=== PATIENT | female | born 1940 | race Caucasian/White ===

== ENCOUNTER 2017-01-22 01:04 | Inpatient (IN) | payer MEDICARE, MEDICAID ==
[2017-01-22] VITALS (11 sets, daily range): BP systolic 94–128; BP diastolic 64–80; PULSE 67–79; RESP 16–18; O2SAT 94–97
[~2017-01-22] VITALS: Ht 152.4 cm; Wt 59.2 kg
[~2017-01-22 01:04] MED LIST: AMOX-366 PO; ASPI-973 PO; HYDR2TAB27 PO; ISOS30TA4 PO; LEVO25TA5 PO; LEVO330T PO; LOSA25TA21 PO; Metoprolol Tartrate PO; NITR0.4T SL; RANI150C4 PO
--- NOTE | 2017-01-22 01:17 | ED.REPORT ---
HPI-Abd Pain F 40 and Over Date of Service Jan 22, 2017 ED Provider: Yair Isabel MD A 76 year old female with a history of diverticulitis, chronic pancreatitis, previous GI bleeds, GERD and previous DC presents to the ED with diarrhea that began 3 days ago. Her current symptoms feel similar to her previous episode of diverticulitis. Associated symptoms include nausea, heart palpitations and abdominal cramping. The pain in her abdomen is exacerbated by cough. She reports mild blood present after wiping but denies large amount of blood in her stool. Patient was last seen in the ED for similar symptoms on 05/19/[address] revealed sigmoid diverticulitis. Nursing Notes Stated Complaint: ABDOMINAL PAIN,FLUTTERING HEART RATE Chief Complaint: Female Abdominal Pain Nursing Notes Reviewed: Yes Allergies: Coded Allergies: morphine (Verified Allergy, Severe, nausea with emesis, 12/20/14) oxycodone (Verified Allergy, Severe, 12/20/14) tetracycline (Verified Allergy, Severe, 12/20/14) hydromorphone (Verified Adverse Reaction, Intermediate, Nausea,Vomiting, ) ondansetron (Verified Adverse Reaction, Intermediate, makes her more sick and vomits, 05/19/16) Scheduled ([Metoprolol Tartrate]) 25 MG TABLET 12.5 MG PO BID Aspirin (Aspirin) 81 Mg Tablet 81 MG PO DAILY Isosorbide MN ER (Isosorbide MN ER) 30 Mg Tab.er.24h 30 MG PO QAM Levothyroxine (Levothyroxine) 25 Mcg Tablet 25 MCG PO DAILY Losartan Potassium (Losartan Potassium) 25 Mg Tablet 12.5 MG PO DAILY Ranitidine (Ranitidine) 300 Mg Capsule 300 MG PO DAILY Scheduled PRN Nitroglycerin SL (Nitrostat) 0.4 Mg Tab.subl 0.4 MG SL Q5MIN PRN PRN For Chest Pain Saccharomyces Boulardii (Florastor) 250 Mg Capsule 250 MG PO PRN For Diarrhea or Loose Stool General Time Seen by MD: 01:16 Chief Complaint Diarrhea moderate Hx Obtained From: Patient Arrived By: Walk-in Sudden in Onset?: No Onset Occurred: 3 days ago Symptom Duration: Since onset Location: : Diffuse Quality: Cramping, Painful Radiation: : Does not radiate Severity: Current: Moderate Severity: Maximum: Moderate Associated with: Reports: Diarrhea, Nausea, Denies: Hematochezia Pertinent Negative: Pt denies other symptoms Exacerbated by: Cough Recent Healthcare: No recent doctor visit, No recent hospitalization Risk Factors )( AAA Risk Stratification Risk factors reviewed Past Medical History Past Medical History Notes: (2013) Sigmoidoscopy - showed diverticulosis and severe colon tortuosity and a rectocele Past Medical History 1. Recent anterior ST-elevation DC on September 21, 2013. 2. Subsequent pericarditis, suspected associated to acute DC and CPR trauma, status post treatment with prednisone. 3. Recent suspected upper GI bleed with endoscopy. Recently not showing any active source of bleeding. 4. Recent severe anemia, suspected secondary to upper GI bleed, now appears resolved. 5. Hiatal hernia. 6. GERD. 7. Questionable cervical cancer, status post conization. Past Surgical History Conical biopsy Smoking History Never Smoker Social History Alcohol Use: Denies alcohol use Drug Use: Denies drug use Other Social History: Good social support, Local resident Ambulatory Status Independent Review of Systems Cardiovascular: Reports: Palpitations GI: Reports: Abdominal pain, Diarrhea, Nausea, Denies: Bloody/tarry stool, Hematochezia Complete sys rev & neg: except as marked. Physical Exam Vital Signs Vital Signs (First) Date Time Temp Pulse Resp B/P Pulse Ox O2 Delivery O2 Flow Rate FiO2 01/22/17 01:08 36.7 74 18 118/80 96 Room Air Initial VS: Reviewed Head / Eyes: Atraumatic, Normocephalic, PERRL Neck: Supple, Non-tender, Full range of motion Extremities: Vascular intact, Neuro intact, No swelling, No tenderness Skin: Warm, Dry, No cyanosis Neurologic: Alert, Oriented, Nonfocal Psychiatric: Mood/affect normal, Behavior normal, Normal thought content General/Constitutional: Awake, Alert, No acute distress Respiratory / Chest: Atraumatic, Breath sounds NL, Breath sounds = bilat, No respiratory distress Cardiovascular: Heart rate NL, Regular rhythm, Heart sounds NL Abdomen: Atraumatic, Soft Tenderness/Guarding/Rebound: Positive: Tender LLQ... (Mild) Back: Atraumatic, Inspection NL Interpretation & Diagnostics Lab Results Interpretation Result Diagram: 01/22/17 0215 01/22/17 0215 Test 01/22/17 02:15 White Blood Count 9.2th/mm3 (3.8-10.1) Red Blood Count 4.37mil/mm3 (3.90-5.20) Hemoglobin 13.3g/dL (12.0-15.6) Hematocrit 38.7% (35.0-46.0) Mean Corpuscular Volume 88.6fL (81-100) Mean Corpuscular Hemoglobin 30.4pg (27.0-35.0) Mean Corpuscular Hemoglobin Concent 34.4% (32.0-37.0) Red Cell Distribution Width 12.3% (12.3-15.4) Platelet Count 171bil/L (150-400) Neutrophils (%) (Auto) 73.1% (40-74) Lymphocytes (%) (Auto) 18.6% (14-46) Monocytes (%) (Auto) 7.7% (4-12) Eosinophils (%) (Auto) 0.3% (0-5) Basophils (%) (Auto) 0.2% (0-3) Prothrombin Time 11.1sec (8.1-12.5) Prothromb Time International Ratio 1.04ratio Urine Color Dark yellow (YELLOW) Urine Appearance Clear (CLEAR,HAZY) Urine pH 6.5 (5.0-8.0) Urine Specific [place] 1.020 (1.003-1.035) Urine Protein Tracemg/dL (NEG,TRACE) Urine Glucose (UA) Negativemg/dL (NEGATIVE) Urine Ketones 40mg/dL (NEGATIVE) Urine Occult Blood Trace (NEGATIVE) Urine Nitrite Negative (NEGATIVE) Urine Bilirubin Negative (NEGATIVE) Urine Urobilinogen 2.0mg/dL (NORMAL) Urine Leukocyte Esterase Small (NEGATIVE) Urine RBC 0-2/hpf (0-2) Urine WBC 6-10/hpf (0-5) Urine Epithelial Cells Few/hpf (NONE-MOD) Urine Crystals Oxalic acid crystals (NONE Urine Bacteria Moderate/hpf (NONE-FEW) Urine Hyaline Casts None/lpf (NONE) Urine Granular Casts None seen (NONE SEEN) Urine Waxy Casts None seen (NONE SEEN) Urine Red Blood Cell Casts None seen (NONE SEEN) Urine White Blood Cell Casts None seen (NONE SEEN) Urine Mucus Present (None Seen) Urine Trichomonas None seen (NONE SEEN) Urine Yeast None (NONE SEEN) Urinalysis Comment None Urine Culture Reflexed Indicated Sodium Level 129mEq/L (134-144) Potassium Level 4.1mEq/L (3.5-5.2) Chloride Level 92mEq/L (97-108) Carbon Dioxide Level 19mmol/L (18-29) Blood Urea Nitrogen 10mg/dL (8-27) Creatinine 0.38mg/dL (0.57-1.00) Estimat Glomerular Filtration Rate 235mL/min (>59) Glucose Level 112mg/dL (60-99) Lactic Acid Level 0.9mmol/L (0.4-2.0) Calcium Level 9.0mg/dL (8.5-10.1) Magnesium Level 1.7mg/dL (1.6-2.6) Total Bilirubin 1.9mg/dL (0.0-1.2) Aspartate Amino Transf (AST/SGOT) 14U/L (0-50) Alanine Aminotransferase (ALT/SGPT) 12U/L (0-32) Alkaline Phosphatase 64U/L (25-165) Total Protein 7.1g/dL (6.4-8.4) Albumin 3.6g/dL (3.4-5.0) Lipase 15U/L (13-60) CT Abd / Pelvis Interpretation IMPRESSION: Probable enteritis of the pelvic small bowel loops with moderate fluid and dilatation of the small bowel and proximal colon, inseparable from an enlarged, heterogeneous uterus. Uterine neoplasm is not excluded. Probable complications from sigmoid diverticulitis, mild residual remains. No abscess or perforation. Study type: Abdominal CT IV contrast, Abdom CT oral contrast Interpretation / Wet Read by: Interpret - Radiologist ([facility]) Re-Eval/Medical Decision Med Decision/Clinical Course 76-year-old female with prior diverticulitis presents with a fairly benign appearance and a normal white count, but a CT that shows a fairly extensive phlegmon in her pelvis associate with diverticulitis. Possibility of uterine cancer also to be considered. Begun with meropenem and admitted for further evaluation and management. Re-Evaluation/Progress #1: Time of Eval: 03:49 Re-Evaluation/Progress Note: Patient is informed of her current lab results and the plan to obtain a CT scan. Re-Evaluation/Progress #2: Time of Eval: 04:44 Patient Status: Condition improved Re-Evaluation/Progress Note: Patient is informed of her concerning CT results and the plan to admit for IV antibiotics. All questions about her diagnosis are addressed. She understands and agrees with the plan to admit. Consultation : Referral / Consult Name: Brinda Burton DO Consulted With: Hospitalist Call Returned at: 04:53 Studio Data Analyst: Will see patient, Agrees with eval, Agrees with plan, Accepts admit Note: Discussed patient conditon. Dr. Burton agrees to admit the patient. Counseled Regarding: Diagnosis, Lab results, Need for admission Discharge & Departure Primary Impression: Sigmoid diverticulitis Additional Impressions: Regional enteritis of small bowel Digestive disease complication type: other complication Qualified Code: K50.018 - Crohn's disease of small intestine with other complication Phlegmon Disposition: ADMITTED TO HOSPITAL Discharge Condition All VS Reviewed: Yes Condition: Improved Referrals: Mora Oneill DO (PCP) Scribe Attestation Portions of this note were transcribed by Garrison Lara. I, Dr. Isabel, personally performed the history, physical exam and medical decision-making; I reviewed and confirmed the accuracy of the information in the transcribed note. Signed by: Garrison Lara, 01/22/17. copies to: Mora Oneill Christopher W MD Jan 22, 2017 01:17 GARRISON LARA Jan 22, 2017 01:24
[2017-01-22] MEDS ORDERED: 0.9% Sodium Chloride 1,000 ML IV ONE (01:21)
[2017-01-22] MEDS ORDERED: Ketorolac 15 mg/mL Inj IVPUSH ONE (01:25)
[2017-01-22 02:27] LABS: BASOPHILS % (AUTO) 0.2 % (0-3); EOSINOPHILS % (AUTO) 0.3 % (0-5); MONOCYTES % (AUTO) 7.7 % (4-12); Mean Corpuscular Hemoglobin 30.4 pg (27.0-35.0); Mean Corpuscular Volume 88.6 fL (81-100); NEUTROPHILS % (AUTO) 73.1 % (40-74); Platelet Count 171 bil/L (150-400)
[2017-01-22 02:34] LABS: APPEARANCE,URINE CLEAR (CLEAR,HAZY); COLOR,URINE DARK YELLOW (YELLOW); OCCULT BLOOD,URINE TRACE (NEGATIVE); PH,URINE 6.5 (5.0-8.0)
[2017-01-22 02:44] LABS: INR 1.04 ratio
[2017-01-22 03:40] LABS: Magnesium 1.7 mg/dL (1.6-2.6)
[2017-01-22] MEDS ORDERED: Promethazine Inj 12.5 MG in 0.9% Sodium Chloride-Pha MIX 100 ML IV ONE (03:50)
[2017-01-22] MEDS ORDERED: Meropenem Inj 1,000 MG in 0.9% Sodium Chloride 50 ML IV ONE (04:50)
[2017-01-22] MEDS ORDERED: Alum-Mag Hydrox-Simeth 30 mL Suspension PO PRN (05:25)
[2017-01-22] MEDS ORDERED: Promethazine 25 mg/mL Inj IM PRN (05:25)
[2017-01-22] MEDS: Lactated Ringer's 1,000 ML IV SCH ×2 (06:17→15:23)
[2017-01-22] MEDS ORDERED: RANI300C PO (06:45)
[2017-01-22] MEDS ORDERED: SACC250C PO (06:45)
--- NOTE | 2017-01-22 06:47 | NUR ---
Admit to room 3013 @ 05:00 with Acute Diverticulitis. Pain 5/10 but does not want anymore pain meds. VSS 95% on RA. Oriented to room and POC on whiteboard.
--- NOTE | 2017-01-22 06:55 | NUR ---
Med Rec completed with patient list/interview.
--- NOTE | 2017-01-22 08:04 | DRSVH ---
PROCEDURE: CT ABDOMEN AND PELVIS WITH CONTRAST ([id number]) INDICATIONS: LLQ PAIN, PRIOR DIVERTICULITIS TECHNIQUE: After the administration of oral and intravenous contrast, 5 mm thick sections acquired from the diap hragms to the symphysis. 5 mm thick coronal and sagittal reformats were performed. For radiation do se reduction, the following was used: automated exposure control, adjustment of mA and/or kV accordi ng to patient size. COMPARISON: [facility], CT, CT ABD PELVIS W CON, 05/19/2016, 14:12. FINDINGS: Image quality: Excellent. ABDOMEN: Lung basesa large hiatal hernia containing the majority of the stomach redemonstrated. Mild associat ed atelectasis is demonstrated in the lung bases. Heart size is normal. Solid organs: Liver and spleen are normal in size and enhancement. There are 2 hepatic cysts noted. Gallbladder is surgically absent. There is mild biliary ductal dilatation likely related to prior c holecystectomy. Pancreas enhances normally. No adrenal nodules. Kidneys demonstrate no hydronephro sis. Peritoneum and bowel: There is mild fluid and gaseous distention of multiple small bowel loops measu ring up to approximately 3 cm in diameter with air-fluid levels. These appear secondary to a functio nal obstruction due to segmental wall thickening and enhancement of multiple small bowel loops in the pelvis compatible with a nonspecific enteritis. There is no single transition point, with a few int ervening segments of mild fluid distention between the nondistended segments. The colon is relativel y nondistended, with fluid and gas contents noted. There is colonic diverticulosis. There is mild s egmental wall thickening within the sigmoid colon distally consistent with a nonspecific colitis, pos sibly reflecting sequelae of diverticulitis. No diverticular abscess or macroscopic free air. There is minimal free fluid in the pelvis. Nodes and vessels: No retroperitoneal or mesenteric adenopathy. Aorta and inferior vena cava are no rmal in caliber. There is splenic varices noted. 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 Miscellaneous: No ventral hernias. PELVIS: Genitourinary: The uterus is enlarged with thickening and heterogeneous enhancement of the myometriu m. Findings are similar to the prior study. Bladder wall thickness is normal. Miscellaneous: There is a small left inguinal hernia containing a small amount of fluid in No inguin al adenopathy. Bones: No suspicious bony lesions. No vertebral body compression fractures. IMPRESSION: 1. Multiple segments of small bowel wall thickening and enhancement in the pelvis consistent with a nonspecific infectious or inflammatory enteritis. There is associated mild dilatation of multiple sm all bowel loops consistent with a functional obstruction without a single transition point. 2. Segmental colitis in the sigmoid colon may be related to sequelae of diverticulitis. No divertic ular abscess or macroscopic free air. 3. Enlarged heterogeneously enhancing uterus. Findings statistically likely represent multiple uter ine fibroids but a neoplasm cannot be excluded. However, findings appear similar to the prior CT of 05/19/16. 4. Large hiatal hernia redemonstrated. Dictated by: Genaro Trejo M.D. on 01/22/2017 at 7:48 Approved by: Genaro Trejo M.D. on 01/22/2017 at 8:03
[2017-01-22] MEDS ORDERED: Meropenem Inj 1,000 MG in 0.9% Sodium Chloride 100 ML IV SCH (08:30)
--- NOTE | 2017-01-22 08:56 | PCM.HPMED ---
Subjective Date of Service Jan 22, 2017 Primary Provider: Admitting Physician: Brinda Burton DO Primary Care Physician: Mora Oneill DO Attending Physician: Brinda Burton DO Admit Status: From the Emergency Department, Full Admit, Admit to Green Team Chief Complaint: Abdominal pain History of Present Illness: This is a 76-year-old female who has a history of diverticulitis, chronic pancreatitis, history of NJ in the past. She notes she was in her usual state of health however approximately 3-4 days ago started having left lower quadrant pain which then became more diffuse. She denies any fevers or chills. She also notes that she developed diarrhea several times per day which was Brown in color. She had no nausea or vomiting. I did not get this history nor go back to assess the patient but according to the ER MDs note she had some palpitations no chest pain. She tells me she has never been able to have a successful colonoscopy given tortuous colon. She notes that this was attempted here at [facility]. Her evaluation in the emergency room includes a normal white blood cell count. CT of abdomen and pelvis with oral and IV contrast reveals multiple segments of small bowel wall thickening and enhancement in the pelvis consistent with nonspecific infectious or inflammatory enteritis. Also appears to be segmental colitis in the sigmoid colon which may be related to sequela of diverticulitis. Also noted is enlarged heterogeneous enhancing uterus. Vision denies any abnormal findings previously of her uterus.. She does note she has a history of a cystocele and rectocele. Was a large hiatal hernia present which she is aware of. Is also small left inguinal hernia noted containing a small amount of fluid. Review of Systems: All other review systems are reviewed and are negative except for as in history of present illness. Allergies Coded Allergies: morphine (Verified Allergy, Severe, nausea with emesis, 12/20/14) oxycodone (Verified Allergy, Severe, 12/20/14) tetracycline (Verified Allergy, Severe, 12/20/14) hydromorphone (Verified Adverse Reaction, Intermediate, Nausea,Vomiting, ) ondansetron (Verified Adverse Reaction, Intermediate, makes her more sick and vomits, 05/19/16) Home Medications Scheduled ([Metoprolol Tartrate]) 25 MG TABLET 12.5 MG PO BID Aspirin (Aspirin) 81 Mg Tablet 81 MG PO DAILY Isosorbide MN ER (Isosorbide MN ER) 30 Mg Tab.er.24h 30 MG PO QAM Levothyroxine (Levothyroxine) 25 Mcg Tablet 25 MCG PO DAILY Losartan Potassium (Losartan Potassium) 25 Mg Tablet 12.5 MG PO DAILY Ranitidine (Ranitidine) 300 Mg Capsule 300 MG PO DAILY Scheduled PRN Nitroglycerin SL (Nitrostat) 0.4 Mg Tab.subl 0.4 MG SL Q5MIN PRN PRN For Chest Pain Saccharomyces Boulardii (Florastor) 250 Mg Capsule 250 MG PO PRN For Diarrhea or Loose Stool PMH Past Medical History Notes: (2013) Sigmoidoscopy - showed diverticulosis and severe colon tortuosity and a rectocele Past Medical History 1. Recent anterior ST-elevation NJ on September 21, 2013. 2. Subsequent pericarditis, suspected associated to acute NJ and CPR trauma, status post treatment with prednisone. 3. Recent suspected upper GI bleed with endoscopy. Recently not showing any active source of bleeding. 4. Recent severe anemia, suspected secondary to upper GI bleed, now appears resolved. 5. Hiatal hernia. 6. GERD. 7. Questionable cervical cancer, status post conization. Past Surgical History Conical biopsy Family History No Family medical history of gastroenterology issues Social History Hx Alcohol Use: No Hx Substance Use: No Smoking Status: Never Smoker Living Arrangement: with Family Exam Vital Signs Vital Sign - Last Date Time Temp Pulse Resp B/P Pulse Ox O2 Delivery O2 Flow Rate FiO2 01/22/17 07:35 78 01/22/17 05:47 36.9 18 128/78 96 Room Air Intake and Output 01/21/17 01/21/17 01/22/17 Cumulative From/Thru 15:00 23:00 07:00 01/22/17 01:08 - 01/22/17 06:34 Intake Total 1000 ml 1000 ml Balance 1000 ml 1000 ml Intake IV Total 1000 ml 1000 ml Exam Constitutional: Elderly female in mild pain distress Head: Normocephalic atraumatic Eyes: PERRLA DC EOMI Mouth: No lesions Neck: No adenopathy Chest: Clear to auscultation Cor: Regular rate and rhythm S1-S2 without murmur Abdomen: Soft bowel sounds hypoactive mildly distended, mild diffuse tenderness but worse in the left lower quadrant. No rebound no guarding. Extremities: No pedal edema Skin: No rashes Psych: Mood and affect are appropriate Neuro: Alert and oriented 3, motor strength is intact bilaterally Lab and Diagnostics Labs Laboratory Tests 72 Hours Test 01/22/17 02:15 White Blood Count 9.2th/mm3 (3.8-10.1) Red Blood Count 4.37mil/mm3 (3.90-5.20) Hemoglobin 13.3g/dL (12.0-15.6) Hematocrit 38.7% (35.0-46.0) Mean Corpuscular Volume 88.6fL (81-100) Mean Corpuscular Hemoglobin 30.4pg (27.0-35.0) Mean Corpuscular Hemoglobin Concent 34.4% (32.0-37.0) Red Cell Distribution Width 12.3% (12.3-15.4) Platelet Count 171bil/L (150-400) Neutrophils (%) (Auto) 73.1% (40-74) Lymphocytes (%) (Auto) 18.6% (14-46) Monocytes (%) (Auto) 7.7% (4-12) Eosinophils (%) (Auto) 0.3% (0-5) Basophils (%) (Auto) 0.2% (0-3) Prothrombin Time 11.1sec (8.1-12.5) Prothromb Time International Ratio 1.04ratio Urine Color Dark yellow (YELLOW) Urine Appearance Clear (CLEAR,HAZY) Urine pH 6.5 (5.0-8.0) Urine Specific [place] 1.020 (1.003-1.035) Urine Protein Tracemg/dL (NEG,TRACE) Urine Glucose (UA) Negativemg/dL (NEGATIVE) Urine Ketones 40mg/dL (NEGATIVE) Urine Occult Blood Trace (NEGATIVE) Urine Nitrite Negative (NEGATIVE) Urine Bilirubin Negative (NEGATIVE) Urine Urobilinogen 2.0mg/dL (NORMAL) Urine Leukocyte Esterase Small (NEGATIVE) Urine RBC 0-2/hpf (0-2) Urine WBC 6-10/hpf (0-5) Urine Epithelial Cells Few/hpf (NONE-MOD) Urine Crystals Oxalic acid crystals (NONE Urine Bacteria Moderate/hpf (NONE-FEW) Urine Hyaline Casts None/lpf (NONE) Urine Granular Casts None seen (NONE SEEN) Urine Waxy Casts None seen (NONE SEEN) Urine Red Blood Cell Casts None seen (NONE SEEN) Urine White Blood Cell Casts None seen (NONE SEEN) Urine Mucus Present (None Seen) Urine Trichomonas None seen (NONE SEEN) Urine Yeast None (NONE SEEN) Urinalysis Comment None Urine Culture Reflexed Indicated Sodium Level 129mEq/L (134-144) Potassium Level 4.1mEq/L (3.5-5.2) Chloride Level 92mEq/L (97-108) Carbon Dioxide Level 19mmol/L (18-29) Blood Urea Nitrogen 10mg/dL (8-27) Creatinine 0.38mg/dL (0.57-1.00) Estimat Glomerular Filtration Rate 235mL/min (>59) Glucose Level 112mg/dL (60-99) Lactic Acid Level 0.9mmol/L (0.4-2.0) Calcium Level 9.0mg/dL (8.5-10.1) Magnesium Level 1.7mg/dL (1.6-2.6) Total Bilirubin 1.9mg/dL (0.0-1.2) Aspartate Amino Transf (AST/SGOT) 14U/L (0-50) Alanine Aminotransferase (ALT/SGPT) 12U/L (0-32) Alkaline Phosphatase 64U/L (25-165) Total Protein 7.1g/dL (6.4-8.4) Albumin 3.6g/dL (3.4-5.0) Lipase 15U/L (13-60) Result Diagram: 01/22/1721401/22/17214 X-Rays, CTs and MRIs PROCEDURE: CT ABDOMEN AND PELVIS WITH CONTRAST ([id number]) INDICATIONS: LLQ PAIN, PRIOR DIVERTICULITIS TECHNIQUE: After the administration of oral and intravenous contrast, 5 mm thick sections acquired from the diaphragms to the symphysis. 5 mm thick coronal and sagittal reformats were performed. For radiation dose reduction, the following was used : automated exposure control, adjustment of mA and/or kV according to patient size. COMPARISON: [facility], CT, CT ABD PELVIS W CON, 05/19/2016, 14:12. FINDINGS: Image quality: Excellent. ABDOMEN: Lung basesa large hiatal hernia containing the majority of the stomach redemonstrated. Mild associated atelectasis is demonstrated in the lung bases. Heart size is normal. Solid organs: Liver and spleen are normal in size and enhancement. There are 2 hepatic cysts noted. Gallbladder is surgically absent. There is mild biliary ductal dilatation likely related to prior cholecystectomy. Pancreas enhances normally. No adrenal nodules. Kidneys demonstrate no hydronephrosis. Peritoneum and bowel: There is mild fluid and gaseous distention of multiple small bowel loops measuring up to approximately 3 cm in diameter with air-fluid levels. These appear secondary to a functional obstruction due to segmental wall thickening and enhancement of multiple small bowel loops in the pelvis compatible with a nonspecific enteritis. There is no single transition point, with a few intervening segments of mild fluid distention between the nondistended segments. The colon is relatively nondistended, with fluid and gas contents noted. There is colonic diverticulosis. There is mild segmental wall thickening within the sigmoid colon distally consistent with a nonspecific colitis, possibly reflecting sequelae of diverticulitis. No diverticular abscess or macroscopic free air. There is minimal free fluid in the pelvis. Nodes and vessels: No retroperitoneal or mesenteric adenopathy. Aorta and inferior vena cava are normal in caliber. There is splenic varices noted. 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 Miscellaneous: No ventral hernias. PELVIS: Genitourinary: The uterus is enlarged with thickening and heterogeneous enhancement of the myometrium. Findings are similar to the prior study. Bladder wall thickness is normal. Miscellaneous: There is a small left inguinal hernia containing a small amount of fluid in No inguinal adenopathy. Bones: No suspicious bony lesions. No vertebral body compression fractures. IMPRESSION: 1. Multiple segments of small bowel wall thickening and enhancement in the pelvis consistent with a nonspecific infectious or inflammatory enteritis. There is associated mild dilatation of multiple small bowel loops consistent with a functional obstruction without a single transition point. 2. Segmental colitis in the sigmoid colon may be related to sequelae of diverticulitis. No diverticular abscess or macroscopic free air. 3. Enlarged heterogeneously enhancing uterus. Findings statistically likely represent multiple uterine fibroids but a neoplasm cannot be excluded. However , findings appear similar to the prior CT of 05/19/16. 4. Large hiatal hernia redemonstrated. Dictated by: Genaro Trejo M.D. on 01/22/2017 at 7:48 Approved by: Genaro Trejo M.D. on 01/22/2017 at 8:03 12-lead ECG Pending Assessment & Plan # Acute regional enteritis, sigmoid colitis and acute diverticulitis, present on admission -We will go ahead and treat with IV Zosyn -Check stool PCR -Clear liquid diet -IV fluids and pain medications as needed -Monitor white blood cell count -Surrounding inflammation could be sequela of diverticulitis #Hyponatremia, acute, present on admission -Most likely related to fluid loss with diarrhea -We will go ahead and replete with IV fluids # Heart palpitations, acute, present on admission -Placed on telemetry -Check 12-lead EKG -Monitor electrolytes # Abnormal uterus on CT, present on admission -Check pelvic ultrasound to further elucidate #History of NJ with coronary artery disease, present on admission -Continue with ASA daily -We will hold her losartan and monitor blood pressures -We will also hold her isosorbide to try to avoid possible hypotension at this point in time # Hypothyroidism, chronic, present on admission -Continue with levothyroxine therapy -Check TSH if not already done # Large hiatal hernia with GERD, chronic, present on admission -Continue with H2 lyn #DVT prophylaxis -Placed on subcutaneous prophylactic heparin #CODE STATUS -Full code Pain Evaluation: Adequate Pain Control GI Prophylaxis: H2 lyn VTE Prophylaxis: Sub-Q Heparin (Unfractionated), SCDs Resuscitation Status: CPR: Attempt Resuscitation Time spent 60 minutes Tigist Fonseca MD Jan 22, 2017 08:56
--- NOTE | 2017-01-22 11:03 | NUR ---
Social Work-initial assessment/multidisciplinary rounds: Data:See initial assessment. Pt is a 76 y/o female who was admitted on 01/22/17 for acute diverticulitis per H&P. Pt's insurance is [facility] and PCP is Mora Oneill MD. EMR Reviewed. SW met with pt at bedside, SW role explained. Pt is alert and oriented x3. Pt resides at home with her daughter and grandkids in [place] where she remains independent with basic ADls. Pt's daughter is her [employer] caregiver, pt has 39 hours a month. 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 Pt has no HH or SNF history. Pt has no residential care insurance or VA Benefits. SW discussed DPOA/ advanced directive, pt confirms this has been completed, SW encouraged a copy to be brought in. Pt confirms her daughter will provide transport home at discharge. Pt does not have capacity for self care as her daughter is her caregiver. SW provided pt with discharge planning checklist and encouraged pt to call with any questions,phone number provided on white board in room. No MD orders have been received. No anticipated discharged needs. SW will continue to follow if needs arise. Assessment:Pt who has caregiver support at home. Plan:Pt to discharge home when medically stable via POV. Pt's daughter is her [employer] caregiver. No anticipated discharged needs. SW will continue to follow if needs arise. SAKINA Alfred Addendum: 01/22/17 at 1116 by MADDISON VILLASEÑOR Amended: Links added.
[2017-01-22] MEDS: Piper-Tazo 3.375 Gm/50 mL D5W Minibag Plus - Q8H over 4 hrs IV SCH ×4 (13:49→20:36)
--- NOTE | 2017-01-22 18:22 | NUR ---
BM/Diarrhea/discomfort/Nausea Pt having frequent diarrhea, occ incontinent. On Clear liquid diet. Instructed pt to use call light and wait for assistance. Pt strong and steady when up, denies SOB, not exhibiting any signs of current fall risk. Reports abdomen discomfort with excessive gas and cramps with pain at 8/10. Pt also reports having nausea with no emesis. Pt declines medication, reports Zofran made her feel more nauseas. Requests heat pad for comfort. informed with order for K-Pad. BSC placed close to bed, providing comfort as accepted, pt cooperative. Request made for Gas-x. paged, awaiting response.
[2017-01-23 01:16] VITALS: BP 110/73; PULSE 79; RESP 18; O2SAT 95
[2017-01-23] MEDS: Lactated Ringer's 1,000 ML IV SCH ×2 (01:23→10:05)
[2017-01-23] MEDS: Piper-Tazo 3.375 Gm/50 mL D5W Minibag Plus - Q8H over 4 hrs IV SCH ×6 (05:25→21:42)
[2017-01-23 05:56] VITALS: BP 103/68; PULSE 73; RESP 18; O2SAT 96
[2017-01-23 06:13] LABS: BASOPHILS % (AUTO) 0.2 % (0-3); EOSINOPHILS % (AUTO) 1.3 % (0-5); MONOCYTES % (AUTO) 7.5 % (4-12); Mean Corpuscular Hemoglobin 30.7 pg (27.0-35.0); NEUTROPHILS % (AUTO) 65.4 % (40-74); Platelet Count 179 bil/L (150-400)
--- NOTE | 2017-01-23 06:17 | NUR ---
NOC PT had good night over noc. PT slept well. PT reported she is not "having diarrhea every 10 minutes anymore,." Simethicone helpful with abdominal pain. Kpad also in use for pain. PT reported mild nausea, but declined antiemetics. LR infusing at 100. B/P in low 100's systolically. Pt up to BSC and BR independently., PLan today for pelvic U/S. WIll CTM. Tolerates clears. Tele SR with IVCD and PVC's.
[2017-01-23 09:02] VITALS: BP 106/66; PULSE 71; RESP 16; O2SAT 94
[2017-01-23 09:19] VITALS: PULSE 70
--- NOTE | 2017-01-23 11:01 | NUR ---
Social Work-readiness for discharge/multidisciplinary rounds: Data :EMR Reviewed. Pt is on day 1 of hospitalization for acute diverticulitis per H&P. Pt is not medically stable anticipate 1-2 more days. Pt resides at home with her daughter who is her [employer] caregiver. SW spoke with [facility] today and confirms pt's CM is Denae Bailey, updated clinicals faxed. Per RN notes, pt has been up independent in her room. No anticipated discharge needs. SW will continue to follow. Assessment:Pt who is independent at baseline. Plan:Pt to discharge home when medically stable via POV. Pt's daughter to continue with [employer] caregiving at home. No anticipated discharge needs. SW will continue to follow. SAKINA Alfred
[2017-01-23 12:49] VITALS: BP 112/68; PULSE 68; RESP 16; O2SAT 95
--- NOTE | 2017-01-23 13:37 | NUR ---
Pt off floor for US
--- NOTE | 2017-01-23 14:51 | PCM.PNMED ---
Subjective Date of Service Jan 23, 2017 Subjective Patient continues to have very loose stool however maybe less frequently. She notes abdominal cramping prior to having a significantly loose bowel movement. She denies any nausea or vomiting. She denies any fevers or chills. Exam Vital Signs Vital Sign - Last Date Time Temp Pulse Resp B/P Pulse Ox O2 Delivery O2 Flow Rate FiO2 01/23/17 12:49 36.8 68 16 112/68 95 Room Air Intake and Output 01/22/17 01/22/17 01/23/17 Cumulative From/Thru 15:00 23:00 07:00 01/22/17 01:08 - 01/23/17 06:48 Intake Total 356 ml 2334 ml 3690 ml Output Total 200 ml 900 ml 1100 ml Balance 156 ml 1434 ml 2590 ml Intake Oral 356 ml 400 ml 756 ml IV Total 1934 ml 2934 ml Output Urine Total 200 ml 900 ml 1100 ml # Voids 3 3 # Bowel Movements 5 8 13 Exam Situational: Elderly female who is somewhat distressed by having explosive diarrhea multiple times Head: Normocephalic atraumatic Chest: Clear to auscultation Cor: Regular rate and rhythm S1-S2 Abdomen: Soft mild diffuse tenderness no rebound no guarding Extremities: No pedal edema Neuro: Alert and oriented 3, motor strength is intact bilaterally Lab and Diagnostics Laboratory Tests 72 Hours Test 01/22/17 02:15 01/23/17 05:57 White Blood Count 9.2th/mm3 (3.8-10.1) 8.2th/mm3 (3.8-10.1) Red Blood Count 4.37mil/mm3 (3.90-5.20) 4.37mil/mm3 (3.90-5.20) Hemoglobin 13.3g/dL (12.0-15.6) 13.4g/dL (12.0-15.6) Hematocrit 38.7% (35.0-46.0) 38.9% (35.0-46.0) Mean Corpuscular Volume 88.6fL (81-100) 89.0fL (81-100) Mean Corpuscular Hemoglobin 30.4pg (27.0-35.0) 30.7pg (27.0-35.0) Mean Corpuscular Hemoglobin Concent 34.4% (32.0-37.0) 34.4% (32.0-37.0) Red Cell Distribution Width 12.3% (12.3-15.4) 12.3% (12.3-15.4) Platelet Count 171bil/L (150-400) 179bil/L (150-400) Neutrophils (%) (Auto) 73.1% (40-74) 65.4% (40-74) Lymphocytes (%) (Auto) 18.6% (14-46) 25.4% (14-46) Monocytes (%) (Auto) 7.7% (4-12) 7.5% (4-12) Eosinophils (%) (Auto) 0.3% (0-5) 1.3% (0-5) Basophils (%) (Auto) 0.2% (0-3) 0.2% (0-3) Prothrombin Time 11.1sec (8.1-12.5) Prothromb Time International Ratio 1.04ratio Urine Color Dark yellow (YELLOW) Urine Appearance Clear (CLEAR,HAZY) Urine pH 6.5 (5.0-8.0) Urine Specific [place] 1.020 (1.003-1.035) Urine Protein Tracemg/dL (NEG,TRACE) Urine Glucose (UA) Negativemg/dL (NEGATIVE) Urine Ketones 40mg/dL (NEGATIVE) Urine Occult Blood Trace (NEGATIVE) Urine Nitrite Negative (NEGATIVE) Urine Bilirubin Negative (NEGATIVE) Urine Urobilinogen 2.0mg/dL (NORMAL) Urine Leukocyte Esterase Small (NEGATIVE) Urine RBC 0-2/hpf (0-2) Urine WBC 6-10/hpf (0-5) Urine Epithelial Cells Few/hpf (NONE-MOD) Urine Crystals Oxalic acid crystals (NONE Urine Bacteria Moderate/hpf (NONE-FEW) Urine Hyaline Casts None/lpf (NONE) Urine Granular Casts None seen (NONE SEEN) Urine Waxy Casts None seen (NONE SEEN) Urine Red Blood Cell Casts None seen (NONE SEEN) Urine White Blood Cell Casts None seen (NONE SEEN) Urine Mucus Present (None Seen) Urine Trichomonas None seen (NONE SEEN) Urine Yeast None (NONE SEEN) Urinalysis Comment None Urine Culture Reflexed Indicated Sodium Level 129mEq/L (134-144) 132mEq/L (134-144) Potassium Level 4.1mEq/L (3.5-5.2) 4.4mEq/L (3.5-5.2) Chloride Level 92mEq/L (97-108) 100mEq/L (97-108) Carbon Dioxide Level 19mmol/L (18-29) 20mmol/L (18-29) Blood Urea Nitrogen 10mg/dL (8-27) 5mg/dL (8-27) Creatinine 0.38mg/dL (0.57-1.00) 0.34mg/dL (0.57-1.00) Estimat Glomerular Filtration Rate 235mL/min (>59) 267mL/min (>59) Glucose Level 112mg/dL (60-99) 103mg/dL (60-99) Lactic Acid Level 0.9mmol/L (0.4-2.0) Calcium Level 9.0mg/dL (8.5-10.1) 8.4mg/dL (8.5-10.1) Magnesium Level 1.7mg/dL (1.6-2.6) Total Bilirubin 1.9mg/dL (0.0-1.2) 1.4mg/dL (0.0-1.2) Aspartate Amino Transf (AST/SGOT) 14U/L (0-50) 16U/L (0-50) Alanine Aminotransferase (ALT/SGPT) 12U/L (0-32) 10U/L (0-32) Alkaline Phosphatase 64U/L (25-165) 58U/L (25-165) Total Protein 7.1g/dL (6.4-8.4) 5.9g/dL (6.4-8.4) Albumin 3.6g/dL (3.4-5.0) 3.5g/dL (3.4-5.0) Lipase 15U/L (13-60) Thyroid Stimulating Hormone (TSH) 3.600uIU/mL (0.450-4.500) Free Thyroxine 1.29ng/dL (0.82-1.77) Result Diagram: 01/23/17 0557 01/23/17 0557 Microbiology Specimen: [id number] Collected: 01/22/17 Status: COMP Req#: [id number] Received: 01/22/17 Source: STOOL Sp Desc : Subm Dr: Tigist Fonseca MD Ordered: JUAN C Comments: Collected by Nurse/Unit? Y/N Y Procedure Result Verified Site Microbiology CAMPYLBACTER SP PCR Final 01/22/17 Not Detected C DIFF TOXIN A AND B BY PCR Final 01/22/17 Not Detected PLESIOMONAS SHIGELLOIDES PCR Final 01/22/17 Not Detected SALMONELLA SPECIES PCR Final 01/22/17 Not Detected YERSINA ENTEROCOLITICA PCR Final 01/22/17 Not Detected VIBRIO SPECIES Final 01/22/17 Not Detected VIBRIO CHOLERAE PCR Final 01/22/17 Not Detected ECOLI PCR ENTEROAGGREGATIVE Final 01/22/17 Not Detected ECOLI PCR ENTEROPATHOGENIC Final 01/22/17 Not Detected ECOLI PCR ENTEROTOXIGENIC Final 01/22/17 Not Detected ECOLI STEC SHIGA TOXIN STX 1 2 Final 01/22/17 Not Detected ECOLI 0157 PCR Final 01/22/17 Not Detected SHIGELLA SP EIEC PCR Final 01/22/17 Not Detected CONTINUED ON NEXT PAGE RUN DATE: 01/22/17 [facility] LIVE PAGE 2 RUN TIME: 1218 Specimen Inquiry PHYSICIAN Patient: YOSI ALBA Rubén [id number] (Continued) Specimen: [id number] Collected: 01/22/17 Received: 01/22/17-1053 (Continued) Procedure Result Verified Site CRYPTOSPORIDIUM PCR Final 01/22/17-1217 Not Detected Microbiology (Continued) CYCLOSPORA CAYETANENISIS PCR Final 01/22/17-1217 Not Detected ENTAMOEBA HISTOLYTICA PCR Final 01/22/17-1217 Not Detected GIARDIA LAMBIA PCR Final 01/22/17 Not Detected ADENOVIRUS PCR F 40 OR 41 Final 01/22/17 Not Detected ASTROVIRUS PCR Final 01/22/17 Not Detected NOROVIRUS GI GI11 Final 01/22/17 Not Detected ROTAVIRUS PCR Final 01/22/17 Not Detected SAPOVIRUS PCR Final 01/22/17 SAPOVIRUS PCR Not Detected Reference Interval Not Detected Results for PCR testing for Stool pathogens must be taken in clinical context when making treatment decisions. Since PCR testing is more sensitive than traditonal technigues, it allows for detection of low levels of pathogens and may be detecting carrier states rather than infections. END OF REPORT X-Rays, CTs and MRIs PROCEDURE: CT ABDOMEN AND PELVIS WITH CONTRAST ([id number]) INDICATIONS: LLQ PAIN, PRIOR DIVERTICULITIS TECHNIQUE: After the administration of oral and intravenous contrast, 5 mm thick sections acquired from the diaphragms to the symphysis. 5 mm thick coronal and sagittal reformats were performed. For radiation dose reduction, the following was used : automated exposure control, adjustment of mA and/or kV according to patient size. COMPARISON: [facility], CT, CT ABD PELVIS W CON, 05/19/2016, 14:12. FINDINGS: Image quality: Excellent. ABDOMEN: Lung basesa large hiatal hernia containing the majority of the stomach redemonstrated. Mild associated atelectasis is demonstrated in the lung bases. Heart size is normal. Solid organs: Liver and spleen are normal in size and enhancement. There are 2 hepatic cysts noted. Gallbladder is surgically absent. There is mild biliary ductal dilatation likely related to prior cholecystectomy. Pancreas enhances normally. No adrenal nodules. Kidneys demonstrate no hydronephrosis. Peritoneum and bowel: There is mild fluid and gaseous distention of multiple small bowel loops measuring up to approximately 3 cm in diameter with air-fluid levels. These appear secondary to a functional obstruction due to segmental wall thickening and enhancement of multiple small bowel loops in the pelvis compatible with a nonspecific enteritis. There is no single transition point, with a few intervening segments of mild fluid distention between the nondistended segments. The colon is relatively nondistended, with fluid and gas contents noted. There is colonic diverticulosis. There is mild segmental wall thickening within the sigmoid colon distally consistent with a nonspecific colitis, possibly reflecting sequelae of diverticulitis. No diverticular abscess or macroscopic free air. There is minimal free fluid in the pelvis. Nodes and vessels: No retroperitoneal or mesenteric adenopathy. Aorta and inferior vena cava are normal in caliber. There is splenic varices noted. 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 Miscellaneous: No ventral hernias. PELVIS: Genitourinary: The uterus is enlarged with thickening and heterogeneous enhancement of the myometrium. Findings are similar to the prior study. Bladder wall thickness is normal. Miscellaneous: There is a small left inguinal hernia containing a small amount of fluid in No inguinal adenopathy. Bones: No suspicious bony lesions. No vertebral body compression fractures. IMPRESSION: 1. Multiple segments of small bowel wall thickening and enhancement in the pelvis consistent with a nonspecific infectious or inflammatory enteritis. There is associated mild dilatation of multiple small bowel loops consistent with a functional obstruction without a single transition point. 2. Segmental colitis in the sigmoid colon may be related to sequelae of diverticulitis. No diverticular abscess or macroscopic free air. 3. Enlarged heterogeneously enhancing uterus. Findings statistically likely represent multiple uterine fibroids but a neoplasm cannot be excluded. However , findings appear similar to the prior CT of 05/19/16. 4. Large hiatal hernia redemonstrated. Dictated by: Genaro Trejo M.D. on 01/22/2017 at 7:48 Approved by: Genaro Trejo M.D. on 01/22/2017 at 8:03 12-lead ECG Sinus at 78 Right bundle branch block Q in anterior leads and 3 Assessment & Plan # Acute regional enteritis, sigmoid colitis and acute diverticulitis, present on admission -We will go ahead and treat with IV Zosyn -Check stool PCR which was negative -Clear liquid diet -IV fluids and pain medications as needed -Monitor white blood cell count -Surrounding inflammation could be sequela of diverticulitis as per radiology -However also could be inflammatory bowel disease -Appreciate Gastroenterology who has been called to consult #Hyponatremia, acute, present on admission -Most likely related to fluid loss with diarrhea -We will go ahead and replete with IV fluids # Heart palpitations, acute, present on admission -Placed on telemetry which reveals no abnormality so will DC -Check 12-lead EKG -Monitor electrolytes # Abnormal uterus on CT, present on admission -Check pelvic ultrasound to further elucidate #History of [place] with coronary artery disease, present on admission -Continue with ASA daily -We will hold her losartan and monitor blood pressures -We will also hold her isosorbide to try to avoid possible hypotension at this point in time # Hypothyroidism, chronic, present on admission -Continue with levothyroxine therapy # Large hiatal hernia with GERD, chronic, present on admission -Continue with H2 lyn #DVT prophylaxis -Placed on subcutaneous prophylactic heparin #CODE STATUS -Full code GI Prophylaxis: H2 lyn VTE Prophylaxis: Sub-Q Heparin (Unfractionated), SCDs VTE Mechanical Devices: Intermittant Pneumatic CD Resuscitation Status: CPR: Attempt Resuscitation Time spent 30 minutes Tigist Fonseca MD Jan 23, 2017 14:51
--- NOTE | 2017-01-23 15:20 | DRSVH ---
PROCEDURE: US PELVIC SONOGRAM + TRANSVAGINAL SONOGRAM INDICATIONS: abnormal uterue on CT TECHNIQUE: Real-time scanning was performed of the pelvic organs, with image documentation. Additional endovagi nal scanning was necessary due to incomplete visualization of the adnexal and endometrial structures by transabdominal scanning. COMPARISON: [facility] Ultrasound, US, [facility], 11/16/2016, 15:00. CT from 1700 FINDINGS: (orthogonal measurements) Uterus size: 7.47 cm, 8.54 cm, 5.45 cm Endometrium thickness: 1.16 cm Right ovary size: Not definitively identified. Left ovary size: Not definitively identified. Transabdominal scanning: Limited scanning through the kidneys shows no hydronephrosis. No pathologi c free abdominal or pelvic fluid. Endovaginal scanning: Uterus: Uterus is normal in size. There is heterogeneous echotexture with calcifications. Endometri um is is thickened with heterogeneous echotexture and cystic areas. Ovaries: Your is not definitively identified. There is a midline structure measuring 4.5 x 2.7 x 3.2 CM and 2.8 cm cystic area. This finding is posterior to the uterus in the midline.. IMPRESSION: 1. Thickened heterogeneous endometrium in a postmenopausal female may represent endometrial hyperplas ia or endometrial malignancy. 2. The ovaries are not identified. There is a mass with a cystic portion in the midline posterior to the uterus which is poorly seen and may represent an ovary. Recommend repeat ultrasound following resolution of the patient's bowel obstruction. If needed, MRI w ith and without contrast could subsequently be performed to evaluate the ovaries. Dictated by: Estiven Campos M.D. on 01/23/2017 at 15:13 Approved by: Estiven Campos M.D. on 01/23/2017 at 15:19
[2017-01-23] MEDS: Cholestyramine Resin Powder 4 Gm Packet PO SCH ×2 (19:14→22:30)
[2017-01-23 19:58] VITALS: BP 129/86; PULSE 77; RESP 18; O2SAT 97
--- NOTE | 2017-01-23 20:26 | PCM.CHPMED ---
Subjective Date of Service: Jan 23, 2017 Provider requesting consult: Tigist Fonseca MD Primary Physician: Admitting Physician: Brinda Burton DO Primary Care Physician: Mora Oneill DO Attending Physician: Tigist Fonseca MD Chief Complaint: Chief Complaint: ABDOMINAL PAIN History of Present Illness: GASTROENTEROLOGY CONSULTATION: Attending Physician: Joel Lee MD Resident Physician: Irina Mtz DO Angela Reece is a 76-year-old lady with a history of diverticulitis, chronic pancreatitis, prior NE, hiatal hernia, GERD, and GI bleeding who presented to the ED with diarrhea. She states that she was in her usual state of health until three days ago when she developed LLQ abdominal pain, cramping, diarrhea, and nausea. She notes similar symptoms in the past related to diverticulitis but denies blood streaked stool before. Associated symptoms include one episode of bright red blood streaked stool but she otherwise denies hematochezia or balck, tarry stool. Of note she was last seen in ED with similar symptoms and an abdominal CT at that time showed sigmoid diverticulitis. Per chart review, patient underwent a limited flexible proctosigmoidoscopy after failed colonoscopy secondary to large amount of diverticula and severe colon tortuosity. Although a limited study no mass lesions were appreciated. In the ED, vitals were stable and labs including CBC, CMP, lipase and thyroid panel significant for hyponatremia, a mildly elevated total bilirubin of 1.9 and normal LFTs as well as lipase. Stool PCR negative. CT abdomen and pelvis showed multiple segments of small bowel wall thickening and enhancement in the pelvis consistent with nonspecific infectious or inflammatory enteritis as well as diverticulitis, and an enlarged heterogeneous enhancing uterus. Review of Systems: A comprehensive review of systems was conducted with the patient and found to be negative except as above in the History of Present Illness. PMH Past Medical History (2013) Sigmoidoscopy - showed diverticulosis and severe colon tortuosity and a rectocele Anterior STEMI- September 21, 2013. Pericarditis, attributed to NE and CPR trauma. Upper GI bleed without active source of bleeding identified on EGD. Hiatal hernia. GERD. . Surgical History Conical biopsy . Home Medications Metoprolol Tartrate 12.5 MG PO BID Aspirin MG PO DAILY Isosorbide MN ER 30 MG PO QAM Levothyroxine 25 MCG PO DAILY Losartan Potassium 12.5 MG PO DAILY Nitroglycerin SL 0.4 MG SL Q5MIN PRN For Chest Pain Saccharomyces Boulardii 250 MG PO PRN For Diarrhea or Loose Stool . Allergies: Coded Allergies: morphine (Verified Allergy, Severe, nausea with emesis, 12/20/14) oxycodone (Verified Allergy, Severe, 12/20/14) tetracycline (Verified Allergy, Severe, 12/20/14) hydromorphone (Verified Adverse Reaction, Intermediate, Nausea,Vomiting, ) ondansetron (Verified Adverse Reaction, Intermediate, makes her more sick and vomits, 05/19/16) Family History Family History Denies family history of cancer or gastrointestinal disorders. Social History Hx Alcohol Use: NoHx Substance Use: No Smoking Status: Never Smoker Living Arrangement: with Family Exam Vital Signs Vital Sign - Last Date Time Temp Pulse Resp B/P Pulse Ox O2 Delivery O2 Flow Rate FiO2 01/23/17 12:49 36.8 68 16 112/68 95 Room Air Intake and Output 01/22/17 01/22/17 01/23/17 Cumulative From/Thru 15:00 23:00 07:00 01/22/17 01:08 - 01/23/17 06:48 Intake Total 356 ml 2334 ml 3690 ml Output Total 200 ml 900 ml 1100 ml Balance 156 ml 1434 ml 2590 ml Intake Oral 356 ml 400 ml 756 ml IV Total 1934 ml 2934 ml Output Urine Total 200 ml 900 ml 1100 ml # Voids 3 3 # Bowel Movements 5 8 13 General: Well appearing, elderly woman in no acute distress. Communicating appropriately. HEENT: Normocephalic, atraumatic. PERRLA, EOMI. Anicteric sclera. Mucous membranes moist/pink Lungs: Clear to auscultation bilaterally with no crackles, wheezes, or rhonchi. Cardiovascular: Regular rate/rhythm. No murmurs Abdomen: Soft, mildly distended with diffuse tenderness to palpation more so in LLQ. No rebound or guarding and hypoactive bowel tones. Extremities: No cyanosis/clubbing/edema bilaterally Skin: Warm and dry. No obvious rashes or ulcerations Neurological: AOx3, No focal neurologic deficit. Normal speech Psychiatric: Normal mood and affect. Communicating appropriately Lab and Diagnostics Result Diagram: 01/23/17 0557 01/23/17 0557 Assessment & Plan Assessment 76-year-old lady with a history of diverticulitis, chronic pancreatitis, prior NE, hiatal hernia, and GI bleeding who presented to the ED with a 3 day history of abdominal pain and cramping associated with diarrhea. Acute regional enteritis, sigmoid colitis and acute diverticulitis in a patient with history severe colon tortuosity and rectocele. - CT abdomen consistent with acute diverticulitis and due to inability to complete colonoscopy in 2013 due to turotuosity and severe diveticula colonoscopy not recommended at this time. No signs/symptoms of infection or active bleeding. Patient reported one episode of blood streaked stool but otherwise denies hematochezia and without history consistent with IBD. She notes diarrhea and recurrent episodes of diverticulitis since having her gallbladder removed approximately 2 years ago. Thus recommend cholestyramine along with continued management of acute diverticulitis and outpatient followup with General Surgery for evaluation of recurrent diverticulitis and possible resection. - cont IV abx per hospitalist team - start cholestyramine for possible bile acid diarrhea given pt diarrhea hx starting since s/p choly. - outpatient Gen surgery consultation- re: recurrent diverticulitis Additional problems managed by primary medicine team: -Abnormal uterus on CT with thickened endometrium noted on pelvic US, concerning for malignancy -Hyponatremia, acute-likely related to fluid loss with diarrhea -Heart palpitations, acute- continuous telemetry, electrolyte monitoring -History of NE with coronary artery disease -Hypothyroidism, chronic, . Problems: Pain Evaluation: Adequate Pain Control GI Prophylaxis: H2 lyn VTE Prophylaxis: Sub-Q Heparin (Unfractionated), SCDs VTE Mechanical Devices: Intermittant Pneumatic CD Resuscitation Status: CPR: Attempt Resuscitation Irina Mtz DO Jan 23, 2017 18:38 Joel Lee MD Jan 24, 2017 08:18
--- NOTE | 2017-01-23 22:16 | NUR ---
Loose Stool/skin Pt continuing to have freq loose stools with urgency -mostly incontinent d/t urgency. Pt wearing brief with pad for absorption. Required several clothing changes during day and pt took a shower to clean up. Pt reporting starting to feel skin becoming irritated, upon viewing skin looked intact. Provided pt with shield wipes and instructed on use for skin care. Pt appreciative and cooperative. Denies any dizziness, no unsteadiness/weakness noted, instructed to use call light for needs.
[2017-01-24 05:03] VITALS: BP 105/70; PULSE 68; RESP 18; O2SAT 95
[2017-01-24] MEDS: Cholestyramine Resin Powder 4 Gm Packet PO SCH ×4 (05:05→21:05)
[2017-01-24] MEDS: Piper-Tazo 3.375 Gm/50 mL D5W Minibag Plus - Q8H over 4 hrs IV SCH ×10 (05:26→23:10)
[2017-01-24 05:44] LABS: BASOPHILS % (AUTO) 0.5 % (0-3); EOSINOPHILS % (AUTO) 2.5 % (0-5); MONOCYTES % (AUTO) 10.2 % (4-12); Mean Corpuscular Hemoglobin 30.3 pg (27.0-35.0); NEUTROPHILS % (AUTO) 55.4 % (40-74); Platelet Count 169 bil/L (150-400)
[2017-01-24] MEDS: Lactated Ringer's 1,000 ML IV SCH ×3 (06:05→17:56)
[2017-01-24 08:38] VITALS: BP 105/67; PULSE 75; RESP 18; O2SAT 95
--- NOTE | 2017-01-24 13:33 | PCM.PNMED ---
Subjective Date of Service Jan 24, 2017 Subjective GASTROENTEROLOGY PROGRESS NOTE: Attending Physician: Joel Lee MD Resident Physician: Irina Mtz DO No acute events overnight. Patient is resting comfortably this morning and reports improvement in diarrhea as well as abdominal pain. She states that she had quite a bit of bloating/gas overnight which was relieved with simethicone. She reports ongoing loose stool but states that this also has improved with less urgency. She reports decreased appetite for several days prior to admission and feels ready to eat. She denies nausea, vomiting, fever, chills and blooding or dark colored stool. Exam Vital Signs Vital Sign - Last Date Time Temp Pulse Resp B/P Pulse Ox O2 Delivery O2 Flow Rate FiO2 01/24/17 08:38 36.6 75 18 105/67 95 Room Air Intake and Output 01/23/17 01/23/17 01/24/17 Cumulative From/Thru 15:00 23:00 07:00 01/22/17 01:08 - 01/24/17 06:35 Intake Total 1464 ml 896 ml 6050 ml Output Total 400 ml 750 ml 2250 ml Balance 1064 ml 146 ml 3800 ml Intake Oral 720 ml 600 ml 2076 ml IV Total 744 ml 296 ml 3974 ml Output Urine Total 400 ml 750 ml 2250 ml # Voids 5 8 # Bowel Movements 8 5 26 Exam General: Well appearing, elderly woman in no acute distress. HEENT: Anicteric sclera. Mucous membranes moist/pink Lungs: Clear to auscultation bilaterally Cardiovascular: Regular rate/rhythm. No murmurs Abdomen: Soft, mildly distended with diffuse tenderness to palpation more so in LLQ. No rebound or guarding and hypoactive bowel tones. Skin: Warm and dry. No obvious rashes or ulcerations Neurological: AOx3, No focal neurologic deficit. Normal speech IVs and Medications Medications Reviewed: Medications were reviewed in detail Lab and Diagnostics Laboratory Tests Test 01/24/17 05:30 White Blood Count 5.6th/mm3 (3.8-10.1) Red Blood Count 4.26mil/mm3 (3.90-5.20) Hemoglobin 12.9g/dL (12.0-15.6) Hematocrit 37.9% (35.0-46.0) Mean Corpuscular Volume 89.0fL (81-100) Mean Corpuscular Hemoglobin 30.3pg (27.0-35.0) Mean Corpuscular Hemoglobin Concent 34.0% (32.0-37.0) Red Cell Distribution Width 12.1% (12.3-15.4) Platelet Count 169bil/L (150-400) Neutrophils (%) (Auto) 55.4% (40-74) Lymphocytes (%) (Auto) 31.2% (14-46) Monocytes (%) (Auto) 10.2% (4-12) Eosinophils (%) (Auto) 2.5% (0-5) Basophils (%) (Auto) 0.5% (0-3) Sodium Level 136mEq/L (134-144) Potassium Level 4.1mEq/L (3.5-5.2) Chloride Level 100mEq/L (97-108) Carbon Dioxide Level 22mmol/L (18-29) Blood Urea Nitrogen 3mg/dL (8-27) Creatinine 0.46mg/dL (0.57-1.00) Estimat Glomerular Filtration Rate 189mL/min (>59) Glucose Level 111mg/dL (60-99) Calcium Level 8.8mg/dL (8.5-10.1) Total Bilirubin 1.2mg/dL (0.0-1.2) Aspartate Amino Transf (AST/SGOT) 12U/L (0-50) Alanine Aminotransferase (ALT/SGPT) 10U/L (0-32) Alkaline Phosphatase 54U/L (25-165) Total Protein 6.0g/dL (6.4-8.4) Albumin 3.5g/dL (3.4-5.0) Microbiology 01/22/17 Stool PCR - Negative 01/22/17 Urine Culture - Mixed Urogenital Michelle . Result Diagram: 01/24/17 0530 01/24/17 0530 X-Rays, CTs and MRIs 01/22/17 - CT ABDOMEN AND PELVIS WITH CONTRAST IMPRESSION: 1. Multiple segments of small bowel wall thickening and enhancement in the pelvis consistent with a nonspecific infectious or inflammatory enteritis. There is associated mild dilatation of multiple small bowel loops consistent with a functional obstruction without a single transition point. 2. Segmental colitis in the sigmoid colon may be related to sequelae of diverticulitis. No diverticular abscess or macroscopic free air. 3. Enlarged heterogeneously enhancing uterus. Findings statistically likely represent multiple uterine fibroids but a neoplasm cannot be excluded. However , findings appear similar to the prior CT of 05/19/16. 4. Large hiatal hernia redemonstrated. Approved by: Genaro Trejo M.D. on 01/22/2017 at 8:03 01/23/17 - US PELVIC SONOGRAM + TRANSVAGINAL SONOGRAM IMPRESSION: 1. Thickened heterogeneous endometrium in a postmenopausal female may represent endometrial hyperplasia or endometrial malignancy. 2. The ovaries are not identified. There is a mass with a cystic portion in the midline posterior to the uterus which is poorly seen and may represent an ovary. Recommend repeat ultrasound following resolution of the patient's bowel obstruction. If needed, MRI with and without contrast could subsequently be performed to evaluate the ovaries. Approved by: Estiven Campos M.D. on 01/23/2017 at 15:19 . Assessment & Plan 76-year-old lady with a history of diverticulitis, chronic pancreatitis, prior ND, hiatal hernia, and GI bleeding who presented to the ED with a 3 day history of abdominal pain and cramping associated with diarrhea. Acute regional enteritis, sigmoid colitis and acute diverticulitis in a patient with history severe colon tortuosity and rectocele. - CT abdomen consistent with acute diverticulitis and due to inability to complete colonoscopy in 2013 due to turotuosity and severe diveticula colonoscopy not recommended at this time. - Patient hemodynamically stable with no overt signs of active bleeding. - Pelvic US to further evaluate abnormal uterine findings on CT significant endometrial thickening that may represent endometrial hyperplasia or endometrial malignancy. RECOMMENDATIONS: - Continue cholestyramine for possible bile acid diarrhea given patient's diarrhea began following cholecystectomy - Stable for discharge from GI standpoint. - Continue zosyn. Can transition to ciprofloxacin/metronidazole upon d/c - Outpatient followup with General Surgery for evaluation of recurrent diverticulitis and possible resection. - banking services officer evaluation for further evaluation of endometrial thickening, this can likely be pursued in the outpatient setting. Additional problems managed by primary medicine team: -Abnormal uterus on CT with thickened endometrium noted on pelvic US, concerning for malignancy -Hyponatremia, acute-likely related to fluid loss with diarrhea -Heart palpitations, acute- continuous telemetry, electrolyte monitoring -History of ND with coronary artery disease -Hypothyroidism, chronic, . Pain Evaluation: Adequate Pain Control GI Prophylaxis: H2 lyn VTE Prophylaxis: Sub-Q Heparin (Unfractionated), SCDs VTE Mechanical Devices: Intermittant Pneumatic CD Resuscitation Status: CPR: Attempt Resuscitation Irina Mtz DO Jan 24, 2017 09:07 Joel Lee MD Jan 25, 2017 07:19
--- NOTE | 2017-01-24 14:15 | PCM.PNMED ---
Subjective Date of Service Jan 24, 2017 Subjective She is improving. Less diarrhea. Less abdomen pain. She is hungry. No fevers or chills. No nausea or chest pain. No dyspnea. No over night events noted. Exam Vital Signs Vital Sign - Last Date Time Temp Pulse Resp B/P Pulse Ox O2 Delivery O2 Flow Rate FiO2 01/24/17 08:38 36.6 75 18 105/67 95 Room Air Intake and Output 01/23/17 01/23/17 01/24/17 Cumulative From/Thru 15:00 23:00 07:00 01/22/17 01:08 - 01/24/17 06:35 Intake Total 1464 ml 896 ml 6050 ml Output Total 400 ml 750 ml 2250 ml Balance 1064 ml 146 ml 3800 ml Intake Oral 720 ml 600 ml 2076 ml IV Total 744 ml 296 ml 3974 ml Output Urine Total 400 ml 750 ml 2250 ml # Voids 5 8 # Bowel Movements 8 5 26 Exam Alert and oriented. No distress, fluent speech Anicteric sclera No facial droop Lungs clear, normal effort Heart regular, no murmur Abdomen soft, non tender. No leg edema. IVs and Medications Medications Reviewed: Medications were reviewed in detail Lab and Diagnostics Result Diagram: 01/24/1730 01/24/17 0530 X-Rays, CTs and MRIs 01/22/17 - CT ABDOMEN AND PELVIS WITH CONTRAST IMPRESSION: 1. Multiple segments of small bowel wall thickening and enhancement in the pelvis consistent with a nonspecific infectious or inflammatory enteritis. There is associated mild dilatation of multiple small bowel loops consistent with a functional obstruction without a single transition point. 2. Segmental colitis in the sigmoid colon may be related to sequelae of diverticulitis. No diverticular abscess or macroscopic free air. 3. Enlarged heterogeneously enhancing uterus. Findings statistically likely represent multiple uterine fibroids but a neoplasm cannot be excluded. However , findings appear similar to the prior CT of 05/19/16. 4. Large hiatal hernia redemonstrated. Approved by: Genaro Trejo M.D. on 01/22/2017 at 8:03 01/23/17 - US PELVIC SONOGRAM + TRANSVAGINAL SONOGRAM IMPRESSION: 1. Thickened heterogeneous endometrium in a postmenopausal female may represent endometrial hyperplasia or endometrial malignancy. 2. The ovaries are not identified. There is a mass with a cystic portion in the midline posterior to the uterus which is poorly seen and may represent an ovary. Recommend repeat ultrasound following resolution of the patient's bowel obstruction. If needed, MRI with and without contrast could subsequently be performed to evaluate the ovaries. Approved by: Estiven Campos M.D. on 01/23/2017 at 15:19 . 12-lead ECG Sinus at 78 Right bundle branch block Q in anterior leads and 3 Assessment & Plan 76-year-old lady with a history of diverticulitis, chronic pancreatitis, prior UT, hiatal hernia, and GI bleeding who presented to the ED with a 3 day history of abdominal pain and cramping associated with diarrhea. #. Acute diverticulitis , present on admission and improving. - CT abdomen consistent with acute diverticulitis and due to inability to complete colonoscopy in 2013 due to turotuosity and severe diveticula colonoscopy not recommended at this time. - Patient hemodynamically stable with no overt signs of active bleeding. -Continue Zosyn, discussed with Dr Lee of GI today. Regular diet. #. Acte diarrhea, present on admission and improved. -continue cholestyramine #. Volume depletion, present on admission and improving. -continue IV fluids, decrease the rate. #. HypovolemicHyponatremia, present on admission and improving. -Most likely related to fluid loss with diarrhea -We will go ahead and replete with IV fluids # Heart palpitations, acute, present on admission and improving. -Placed on telemetry which reveals no abnormality so will DC -Check 12-lead EKG -Monitor electrolytes # Abnormal uterus on CT, present on admission and stable. -out patient follow up with [employer] (she is established for this problem) #. Coronary artery disease, present on admission and stable. -Continue with ASA daily -We will hold her losartan and monitor blood pressures -We will also hold her isosorbide to try to avoid possible hypotension at this point in time #. Hypothyroidism, chronic, present on admission and stable. -Continue with levothyroxine therapy #. Large hiatal hernia with GERD, chronic, present on admission -Continue with H2 lyn Possible discharge home GI Prophylaxis: H2 lyn VTE Prophylaxis: Sub-Q Heparin (Unfractionated), SCDs VTE Mechanical Devices: Intermittant Pneumatic CD Resuscitation Status: CPR: Attempt Resuscitation Vidal Rogers MD Jan 24, 2017 14:15
[2017-01-24 17:01] VITALS: BP 110/73; PULSE 69; RESP 18; O2SAT 96
--- NOTE | 2017-01-24 19:48 | NUR ---
BM Pt reports having only 1 BM during shift, partially formed medium. Questran powder in apple juice as tolerated and in between medications per orders. Pt reports feeling better, Diet order advanced. Pt tolerated about 50% of meal, denies Nausea and increased discomfort.
[2017-01-24 20:58] VITALS: BP 110/74; PULSE 69; RESP 18; O2SAT 95
[2017-01-25 00:50] VITALS: BP 109/75; PULSE 66; RESP 18; O2SAT 94
[2017-01-25] MEDS: Cholestyramine Resin Powder 4 Gm Packet PO SCH ×2 (01:20→10:30)
[2017-01-25 04:37] VITALS: BP 106/68; PULSE 72; RESP 16; O2SAT 95
[2017-01-25] MEDS: Piper-Tazo 3.375 Gm/50 mL D5W Minibag Plus - Q8H over 4 hrs IV SCH ×2 (05:30)
[2017-01-25 05:47] LABS: BASOPHILS % (AUTO) 0.2 % (0-3); EOSINOPHILS % (AUTO) 1.5 % (0-5); MONOCYTES % (AUTO) 7.4 % (4-12); Mean Corpuscular Hemoglobin 30.5 pg (27.0-35.0); Mean Corpuscular Volume 88.3 fL (81-100); NEUTROPHILS % (AUTO) 69.1 % (40-74); Platelet Count 172 bil/L (150-400)
--- NOTE | 2017-01-25 11:48 | PCM.DIMED ---
Discharge Instructions Date of Service Jan 25, 2017 Dates of Hospitalization Jan 22, 2017 at 05:07 Discharge Diagnosis Discharge Diagnosis #. Acute diverticulitis , improved. #. Acte diarrhea, improved. #. Volume depletion, resolved. #. HypovolemicHyponatremia, resolved. # Heart palpitations, improved. # Abnormal uterus on CT, stable. #. Coronary artery disease, stable. #. Hypothyroidism, stable. -Continue with levothyroxine therapy #. Large hiatal hernia with GERD, stable. Diet Discharge Diet: No restrictions Activity Discharge Activity: No restrictions Call your provider Call your provider for: Fever or Chills, Other (increased abdomen pain) Patient Instructions Follow-up Provider: Mora Oneill DO Follow-up with PCP in: 1 week Provider: Joel Lee MD Follow-up in: 2 weeks Vidal Rogers MD Jan 25, 2017 11:48
[2017-01-25] MEDS ORDERED: QUE9 PO (11:50)
[2017-01-25] MEDS ORDERED: AMOX-366 PO (11:50)
[2017-01-25] MEDS ORDERED: PROC5TAB50 PO (11:50)
--- NOTE | 2017-01-25 12:30 | NUR ---
Discharge Went over discharge instructions and medications with patient and daughter. Removed IV. Patient left in wheel chair to with [employer]. No s/s of distress at time of dc
--- NOTE | 2017-01-25 12:54 | NUR ---
Social Work: Discharge Data & Assessment: EMR reviewed. Patient is on day 3 of hospitalization for acute diverticulitis per H&P. Patient was discussed in morning rounds. Patient has been deemed medically stable for discharge today per MD. Patient will return home with daughter. Transportation needs will be provided by family. Patient has no additional needs at this time. Plan: Patient will discharge home today. Transportation will be provided by family member. Patient has no additional needs at this time. SAKINA Mcelroy
--- NOTE | 2017-01-25 14:08 | PCM.DC.MED ---
Discharge Summary Date of Service Jan 25, 2017 Dates of Hospitalization Date of Hospital Admission Jan 22, 2017 at 05:07 Date of Discharge: Jan 25, 2017 Providers: Admitting Physician: Brinda Burton DO Primary Care Physician: Mora Oneill DO Attending Physician: Vidal López MD Diagnosis at Time of Discharge Diagnosis at Time of Discharge #. Acute diverticulitis , improved. #. Acte diarrhea, improved. #. Volume depletion, resolved. #. HypovolemicHyponatremia, resolved. # Heart palpitations, improved. # Abnormal uterus on CT, stable. #. Coronary artery disease, stable. #. Hypothyroidism, stable. -Continue with levothyroxine therapy #. Large hiatal hernia with GERD, stable. Consultations *Nephrology, Dr. Lee Procedures XRay, CTs & MRIs 01/22/17 - CT ABDOMEN AND PELVIS WITH CONTRAST IMPRESSION: 1. Multiple segments of small bowel wall thickening and enhancement in the pelvis consistent with a nonspecific infectious or inflammatory enteritis. There is associated mild dilatation of multiple small bowel loops consistent with a functional obstruction without a single transition point. 2. Segmental colitis in the sigmoid colon may be related to sequelae of diverticulitis. No diverticular abscess or macroscopic free air. 3. Enlarged heterogeneously enhancing uterus. Findings statistically likely represent multiple uterine fibroids but a neoplasm cannot be excluded. However , findings appear similar to the prior CT of 05/19/16. 4. Large hiatal hernia redemonstrated. Approved by: Genaro Trejo M.D. on 01/22/2017 at 8:03 01/23/17 - US PELVIC SONOGRAM + TRANSVAGINAL SONOGRAM IMPRESSION: 1. Thickened heterogeneous endometrium in a postmenopausal female may represent endometrial hyperplasia or endometrial malignancy. 2. The ovaries are not identified. There is a mass with a cystic portion in the midline posterior to the uterus which is poorly seen and may represent an ovary. Recommend repeat ultrasound following resolution of the patient's bowel obstruction. If needed, MRI with and without contrast could subsequently be performed to evaluate the ovaries. Approved by: Estiven Campos M.D. on 01/23/2017 at 15:19 . ECG 12 Lead Sinus at 78 Right bundle branch block Q in anterior leads and 3 Invasive Procedures Non- Brief History GASTROENTEROLOGY CONSULTATION: Attending Physician: Joel Lee MD Resident Physician: Irina Mtz DO Angela Reece is a 76-year-old lady with a history of diverticulitis, chronic pancreatitis, prior CA, hiatal hernia, GERD, and GI bleeding who presented to the ED with diarrhea. She states that she was in her usual state of health until three days ago when she developed LLQ abdominal pain, cramping, diarrhea, and nausea. She notes similar symptoms in the past related to diverticulitis but denies blood streaked stool before. Associated symptoms include one episode of bright red blood streaked stool but she otherwise denies hematochezia or balck, tarry stool. Of note she was last seen in ED with similar symptoms and an abdominal CT at that time showed sigmoid diverticulitis. Per chart review, patient underwent a limited flexible proctosigmoidoscopy after failed colonoscopy secondary to large amount of diverticula and severe colon tortuosity. Although a limited study no mass lesions were appreciated. In the ED, vitals were stable and labs including CBC, CMP, lipase and thyroid panel significant for hyponatremia, a mildly elevated total bilirubin of 1.9 and normal LFTs as well as lipase. Stool PCR negative. CT abdomen and pelvis showed multiple segments of small bowel wall thickening and enhancement in the pelvis consistent with nonspecific infectious or inflammatory enteritis as well as diverticulitis, and an enlarged heterogeneous enhancing uterus. Hospital Course 76-year-old lady with a history of diverticulitis, chronic pancreatitis, prior CA, hiatal hernia, and GI bleeding who presented to the ED with a 3 day history of abdominal pain and cramping associated with diarrhea. #. Acute diverticulitis , present on admission and improving. - CT abdomen consistent with acute diverticulitis and due to inability to complete colonoscopy in 2013 due to turotuosity and severe diveticula colonoscopy not recommended at this time. - Patient hemodynamically stable with no overt signs of active bleeding. -Continue Zosyn, discussed with Dr Lee of GI today. Regular diet. Visible CT indicated diverticulitis. The patient treated symptomatically with IV antibiotics, Zosyn and did improve clinically. #. Acte diarrhea, present on admission and improved. -continue cholestyramine Her diarrhea did resolve with cholestyramine. #. Volume depletion, present on admission and improving. -continue IV fluids, decrease the rate. She was resuscitated. #. HypovolemicHyponatremia, present on admission and improving. -Most likely related to fluid loss with diarrhea -We will go ahead and replete with IV fluids She improved with IV fluids. # Heart palpitations, acute, present on admission and improving. -Placed on telemetry which reveals no abnormality so will DC -Check 12-lead EKG -Monitor electrolytes These remained relatively minor part of her symptoms. # Abnormal uterus on CT, present on admission and stable. -out patient follow up with MODEL MAKER (she is established for this problem) #. Coronary artery disease, present on admission and stable. -Continue with ASA daily -We will hold her losartan and monitor blood pressures -We will also hold her isosorbide to try to avoid possible hypotension at this point in time This remained clinically quiescent. #. Hypothyroidism, chronic, present on admission and stable. -Continue with levothyroxine therapy #. Large hiatal hernia with GERD, chronic, present on admission -Continue with H2 lyn The day of discharge she felt that her near baseline with minimal abdominal pain. She also did have some ongoing nausea requested a prescription for either Phenergan or Compazine. She had minimal response to ondansetron previously. She was able to tolerate a fairly normal diet for the last day of her admission. No further diarrhea. Exam Vital Signs (Last) Date Time Temp Pulse Resp B/P Pulse Ox O2 Delivery O2 Flow Rate FiO2 01/25/17 04:37 36.8 72 16 106/68 95 Room Air Exam Patient was seen and examined on the day of discharge Test 01/22/17 02:15 01/25/17 05:34 Prothrombin Time 11.1sec (8.1-12.5) Prothromb Time International Ratio 1.04ratio Urine Color Dark yellow (YELLOW) Urine Appearance Clear (CLEAR,HAZY) Urine pH 6.5 (5.0-8.0) Urine Specific [place] 1.020 (1.003-1.035) Urine Protein Tracemg/dL (NEG,TRACE) Urine Glucose (UA) Negativemg/dL (NEGATIVE) Urine Ketones 40mg/dL (NEGATIVE) Urine Occult Blood Trace (NEGATIVE) Urine Nitrite Negative (NEGATIVE) Urine Bilirubin Negative (NEGATIVE) Urine Urobilinogen 2.0mg/dL (NORMAL) Urine Leukocyte Esterase Small (NEGATIVE) Urine RBC 0-2/hpf (0-2) Urine WBC 6-10/hpf (0-5) Urine Epithelial Cells Few/hpf (NONE-MOD) Urine Crystals Oxalic acid crystals (NONE Urine Bacteria Moderate/hpf (NONE-FEW) Urine Hyaline Casts None/lpf (NONE) Urine Granular Casts None seen (NONE SEEN) Urine Waxy Casts None seen (NONE SEEN) Urine Red Blood Cell Casts None seen (NONE SEEN) Urine White Blood Cell Casts None seen (NONE SEEN) Urine Mucus Present (None Seen) Urine Trichomonas None seen (NONE SEEN) Urine Yeast None (NONE SEEN) Urinalysis Comment None Urine Culture Reflexed Indicated Lactic Acid Level 0.9mmol/L (0.4-2.0) Magnesium Level 1.7mg/dL (1.6-2.6) Lipase 15U/L (13-60) Thyroid Stimulating Hormone (TSH) 3.600uIU/mL (0.450-4.500) Free Thyroxine 1.29ng/dL (0.82-1.77) White Blood Count 5.9th/mm3 (3.8-10.1) Red Blood Count 4.20mil/mm3 (3.90-5.20) Hemoglobin 12.8g/dL (12.0-15.6) Hematocrit 37.1% (35.0-46.0) Mean Corpuscular Volume 88.3fL (81-100) Mean Corpuscular Hemoglobin 30.5pg (27.0-35.0) Mean Corpuscular Hemoglobin Concent 34.5% (32.0-37.0) Red Cell Distribution Width 11.9% (12.3-15.4) Platelet Count 172bil/L (150-400) Neutrophils (%) (Auto) 69.1% (40-74) Lymphocytes (%) (Auto) 21.8% (14-46) Monocytes (%) (Auto) 7.4% (4-12) Eosinophils (%) (Auto) 1.5% (0-5) Basophils (%) (Auto) 0.2% (0-3) Sodium Level 130mEq/L (134-144) Potassium Level 3.9mEq/L (3.5-5.2) Chloride Level 93mEq/L (97-108) Carbon Dioxide Level 22mmol/L (18-29) Blood Urea Nitrogen 4mg/dL (8-27) Creatinine 0.51mg/dL (0.57-1.00) Estimat Glomerular Filtration Rate 168mL/min (>59) Glucose Level 85mg/dL (60-99) Calcium Level 8.5mg/dL (8.5-10.1) Total Bilirubin 0.7mg/dL (0.0-1.2) Aspartate Amino Transf (AST/SGOT) 13U/L (0-50) Alanine Aminotransferase (ALT/SGPT) 10U/L (0-32) Alkaline Phosphatase 53U/L (25-165) Total Protein 5.8g/dL (6.4-8.4) Albumin 3.3g/dL (3.4-5.0) Discharge Medications Discharge Medications ([Metoprolol Tartrate]) 25 MG TABLET 12.5 MG PO BID Prescribed by: PORTIA HUTSON MD Amoxicillin/Clav K 875-125 mg (Augmentin 875-125 mg) 1 Each Tablet 1 TABLET PO BID Prescribed by: VIDAL LÓPEZ MD Aspirin (Aspirin) 81 Mg Tablet 81 MG PO DAILY (Reported) Cholestyramine (Cholestyramine Packet) 4 Gm Packet 4 GM PO Q6H Prescribed by: VIDAL LÓPEZ MD Isosorbide MN ER (Isosorbide MN ER) 30 Mg Tab.er.24h 30 MG PO QAM (Reported) Levothyroxine (Levothyroxine) 25 Mcg Tablet 25 MCG PO DAILY (Reported) Losartan Potassium (Losartan Potassium) 25 Mg Tablet 12.5 MG PO DAILY (Reported ) Ranitidine (Ranitidine) 300 Mg Capsule 300 MG PO DAILY (Reported) As needed Nitroglycerin SL (Nitrostat) 0.4 Mg Tab.subl 0.4 MG SL Q5MIN PRN PRN For Chest Pain (Reported) Prochlorperazine Maleate (Compazine) 5 Mg Tablet 5 MG PO TID PRN PRN For Nausea Prescribed by: VIDAL LÓPEZ MD Saccharomyces Boulardii (Florastor) 250 Mg Capsule 250 MG PO PRN For Diarrhea or Loose Stool (Reported) Followup Plan Disposition: Home Discharge Diet: No restrictions Discharge Activity: No restrictions Follow-up Provider: Mora Oneill DO Follow-up with PCP in: 1 week Provider: Joel Lee MD Follow-up in: 2 weeks Time spent 40 minutes Vidal López MD Jan 25, 2017 14:08
== END 2017-01-25 13:12 | disposition home or self-care (01) | DRG 392 ==
LOC: SED 01:04 → MPC 05:07
PROVIDERS: ADMIT Internal Medicine; ATTEND Hospitalist
DX: K57.32 Diverticulitis of large intestine without perforation or abscess without bleeding (principal); E87.1 Hypo-osmolality and hyponatremia; E86.1 Hypovolemia; K21.9 Gastro-esophageal reflux disease without esophagitis; K44.9 Diaphragmatic hernia without obstruction or gangrene; I25.10 Atherosclerotic heart disease of native coronary artery without angina pectoris; E03.9 Hypothyroidism, unspecified; I25.2 Old myocardial infarction; Z79.82 Long term (current) use of aspirin